=== PATIENT | female | born 2000 | race Caucasian/White ===

== ENCOUNTER 2023-06-04 12:28 | Emergency (ER) | payer SELFPAY ==
[~2023-06-04] VITALS: Ht 152 cm; Wt 43.0 kg
[2023-06-04] MEDS ORDERED: diphenhydrAMINE INJ 50 MG/ML VIAL INJ STA (13:08)
--- NOTE | 2023-06-04 13:08 | ED Integumentary General ---
General Chief Complaint: Skin/Wound Problems Stated Complaint: RASH/ITCHING Nursing Triage Note: PT TO ED WITH C/O RASH ALL OVER LEGS, ARMS, FACE FOR 2 DAYS History of Present Illness Date Seen by Provider: Jun 04, 2023 Time Seen by Provider: 13:08 Initial Comments 22-year-old female presents with a diffuse rash that is been going on for about 2 days. She reports she got after laying in the grass. It itches. She has not taken thing for it. She has no shortness of breath, wheezing, nausea vomiting or other systemic complaints. Allergies and Home Medications Allergies Coded Allergies: No Known Drug Allergies (Unverified , 06/04/23) Patient Home Medication List Home Medication List Reviewed: Yes Review of Systems Review of Systems Constitutional: no symptoms reported EENTM: no symptoms reported Respiratory: no symptoms reported Cardiovascular: no symptoms reported Gastrointestinal: no symptoms reported Musculoskeletal: no symptoms reported Skin: see HPI Past [id number] Hx Patient Social History Tobacco Use?: No Substance use?: No Physical Exam Vital Signs Vital Signs - First Documented 06/04/23 12:39 Temp 36.6 Pulse 111 Resp 16 B/P (MAP) 111/69 (83) Pulse Ox 100 Capillary Refill : General Appearance: WD/WN, no apparent distress Cardiovascular: normal peripheral pulses, regular rate, rhythm Respiratory: lungs clear, normal breath sounds Gastrointestinal: non tender, soft Skin: rash Skin Problem Location: generalized Skin Problem Character: erythema, patchy, urticarial Progress/Results/Core Measures Results/Orders Vital Signs/I&O 06/04/23 12:39 Temp 36.6 Pulse 111 Resp 16 B/P (MAP) 111/69 (83) Pulse Ox 100 Blood Pressure Mean: 83 Progress Progress Note : Progress Note Patient's symptoms likely due to a contact dermatitis. Will be given 10 mg of IM Decadron along with some IM Benadryl. Recommend she use Benadryl every 4-6 hours as needed along with daily Zyrtec. She is stable and discharged home Departure Impression Primary Impression: Allergic contact dermatitis Qualified Codes: L23.7 - Allergic contact dermatitis due to plants, except food Disposition: HOME, SELF-CARE Condition: Stable Departure-Patient Inst. Referrals: NO,LOCAL PHYSICIAN (PCP) Primary Care Physician Patient Instructions: Contact Dermatitis (DC) Add. Discharge Instructions: 25 to 50 mg Benadryl every 6-8 hours as needed. Zyrtec daily, take as directed on package All discharge instructions reviewed with patient and/or family. Voiced understanding. MARIA ISABEL HOUSE DO Jun 04, 2023 13:08
[2023-06-04] MEDS ORDERED: dexAMETHasone INJ 10 MG/ML 1 ML VIAL IM ONE (13:15)
[2023-06-04 13:37] VITALS: BP 111/69
== END 2023-06-04 13:38 | disposition home or self-care (01) ==
LOC: ER 12:33
DX: L23.9 Allergic contact dermatitis, unspecified cause (principal)
CPT/HCPCS: 99281